=== PATIENT | female | born 1960 | race Caucasian/White ===

== ENCOUNTER → 2019-05-19 | Outpatient (CLI) | payer OTHER ==
[~2019-05-19] VITALS: Ht 154.9 cm; Wt 83.8 kg
[~2019-05-19] MED LIST: BENADRYL25 MG PO; DEXAMETHASONE 22 M1 PO; FLEXERIL PO; IBUPROFEN 400400 M1 PO; NAPROSYN500 MG PO; NORCO 5-325 TA1 EACH PO; NORTRIPTYLINE H25 M3 PO
[2019-05-19 08:35] VITALS: BP 127/71
--- NOTE | 2019-06-03 14:23 | HPC ---
[facility] [address] [place] [address] PAIN MANAGEMENT CONSULTATION Name: JABARI YAN Room #: REG ONEAL Bello.#: [id number] Admission: 05/19/19 Attend Phys: Nirmal Valerio MD Discharge: Date of : 64 Report #: [id number] THIS REPORT FOR: //name// CC: Mitul Benoit DO FAM physician/PCP FAM unknown ANABELL Valerio DATE OF SERVICE: 05/19/2019 CHIEF COMPLAINT: Chronic pain in the right anterior lateral thigh. Possible meralgia paresthetica. 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 Anabell Johnson. She has been reporting severe pain in her right anterolateral thigh that does not radiate or extend beyond the distribution of the lateral femoral cutaneous nerve area. She describes it as very sharp, stabbing and burning like someone hit her with a bat. She also is descriptive and says that it feels like someone is twisting her leg and never lets go. It is tender. Stabbing sensation is associated with allodynia. She scores it as a 10. She also has chronic back pain. She reports that Dr. Johnson placed a spinal cord stimulator in December of 2016 for back pain. To her recollection, although she was experiencing the right leg pain, the stimulator was placed only to help the back, not the leg. Nonetheless, they have used the stimulator on multiple occasions, changing stimulation patterns, attempting to cover this area without success. She has not tried many medications. She has had [id number] Tylenol and ibuprofen with limited benefit and still does not take it. She has had no trials with gabapentin or Lyrica for this neuropathic-like pain syndrome. Her only opioid medication is tramadol and she found it to be very nauseating and took only 1 or 2 tablets before discontinuing it. She has had no salves, creams or patches. She has had physical therapy without relief and water therapy, but does not like the water due to the allodynia. CURRENT MEDICATIONS: None. ALLERGIES: AMOXICILLIN. PAST MEDICAL HISTORY: She has a history of endometriosis. [facility] [address] [place] [address] PAIN MANAGEMENT CONSULTATION Name: JABARI YAN Room #: REG ONEAL Eugenia.#: [id number] Admission: 05/19/19 Attend Phys: Nirmal Valerio MD Discharge: Date of : 64 Report #: [id number] PAST SURGICAL HISTORY: Hysterectomy, D and C, spinal cord stimulator placement and recent bile duct surgery performed at [facility]. She denies pulmonary or cardiac issues. Denies hypertension. No history of stroke or cancer. SOCIAL HISTORY: She is single, but is here today with her significant other with whom she lives. She smokes a pack of cigarettes a day and has done so for most of her adult life. She denies use of alcohol and other illegal drugs. The patient was a garden machinery mechanic at school, but took a social security disability in 2015. REVIEW OF SYSTEMS: Positive for fatigue, weakness, weight gain, frequent coughing, sexual difficulties. PHYSICAL EXAMINATION: GENERAL: She is a pleasant female. She smells of tobacco. She moves independently from sitting to standing position and she walks with antalgic features. Her stamina is not good. She walks up the rodriguez and back, she is showing signs of fatigue, and her gait becomes more antalgic as she ambulates. VITAL SIGNS: Blood pressure is 127/71, heart rate 86, respirations 16, O2 sat 95. She is 5 feet 1 inch, 154 pounds with a BMI of 34.9. HEENT: Normal. Pupils are equal, round, react to light. EOMs are intact. She has tobacco stains on her teeth. NECK: Supple. CHEST: Clear to auscultation except there are decreased breath sounds in the bases. CARDIAC: Rhythm is regular. I could not appreciate a murmur. ABDOMEN: Obese. No appreciable organomegaly. No tenderness. Bowel sounds are present. MUSCULOSKELETAL: Examination of the spine reveals normal alignment. She has good range of motion. She has a spinal cord stimulator placed with the battery on the right and paddle leads tip around T9 seen later on x-ray. No tenderness across the lumbar spine. She has some decreased range of motion. Straight leg raising is negative. She has quite significant pain with internal and external rotation of the hip as well as pain with hip flexion. There is no pain in the groin. She is very hypersensitive and has allodynia and a very circumscribed area that would be consistent with distribution of the lateral femoral cutaneous nerve. No focal weakness is present, but generalized weakness of the lower extremities due to deconditioning is present. IMPRESSION: Right meralgia paresthetica. RECOMMENDATION: I do think that an injection of the lateral femoral cutaneous nerve may be helpful for both diagnostic and therapeutic purposes. Potential benefits and risks of the shot were explained to the patient. She would like to proceed. [facility] [address] [place] [address] PAIN MANAGEMENT CONSULTATION Name: JABARI YAN Room #: MARY Wray#: [id number] Admission: 05/19/19 Attend Phys: Nirmal Valerio MD Discharge: Date of : 64 Report #: [id number] PROCEDURE: She was taken to the fluoroscopic suite in order to facilitate the injection since landmarks were a bit obscure. With fluoroscopic guidance, I was easily able to identify the anterior superior iliac spine. Skin was anesthetized and a 4-inch 22-gauge Tuohy epidural needle was advanced into position using AP and lateral views just to the medial edge of the anterior superior iliac spine. After negative aspiration, I injected 0.25 mL of Omnipaque, demonstrated spread. This looked fine and in a good location for the distribution of the nerve from the AP and lateral views. I then followed with 5 mL of 0.5% bupivacaine mixed with 40 mg of triamcinolone. She tolerated the procedure well and was observed in recovery room for about 30 minutes and discharged with 30% pain relief. Follow up as needed. Further injections will depend upon response. <ELECTRONICALLY SIGNED> By: Nirmal Valerio MD 06/03/19 1423 [id number] [id number] Nirmal Valerio MD /nt
== END | disposition home or self-care (01) ==
LOC: PAIN 06:47
DX: G57.11 Meralgia paresthetica, right lower limb (principal); M79.18 Myalgia, other site; F17.210 Nicotine dependence, cigarettes, uncomplicated; Z90.710 Acquired absence of both cervix and uterus; Z98.890 Other specified postprocedural states; Z88.8 Allergy status to other drugs, medicaments and biological substances

== ENCOUNTER → 2019-06-20 | Outpatient (CLI) | payer OTHER ==
[~2019-06-20] VITALS: Ht 154.9 cm; Wt 83.1 kg
[2019-06-20 09:51] VITALS: BP 141/83
--- NOTE | 2019-06-20 10:07 | NUR ---
Pain Clinic Assessment: 1. History of Osteoarthritis: RT KNEE RT HIP History of Rheumatoid Arthritis: DENIES 2. Height: 5 ft. 1 in. 154.9 cm. Weight: 183.2 lb. oz. 83.099 kg. Patient's BMI: 34.6 3. Vital Signs: BP: 141/83 Pulse: 104 Resp: 16 Temp: 02 Sat: 98 ECG Mon: 4. Pain Intensity: 7-8-TODAY 5. Fall Risk: Dizziness: N Needs help standing or walking: N Fallen in the last 3 months: N Fall risk comments: 6. Patient on Blood Thinner: None 7. History of Hypertension: N 8. Opioid Therapy greater than 6 weeks: N Opiate Contract Signed: 9. Risk Assessment Tool Provided: LOW 10. Functional Assessment Tool: 70/70 11. Recreational Drug Use: Never Drug Type: Tobacco Use: Current Every Day Smoker Tobacco Type: Amount or Packs/day: How Many Years: Alcohol Use: No Frequency: Quant:
--- NOTE | 2019-07-11 12:20 | HPC ---
[facility] [address] [place] [address] PAIN MANAGEMENT CONSULTATION Name: JABARI YAN Room #: REG ONEAL GildardoAvis.#: [id number] Admission: 06/20/19 Attend Phys: Nirmal Valerio MD Discharge: Date of : 64 Report #: [id number] THIS REPORT FOR: //name// CC: Mitul Valerio DATE OF SERVICE: 06/20/2019 Followup visit for meralgia paresthetica pain into the right anterior lateral thigh. The patient received relief from an injection performed about 1 month ago. The duration of response was about 2 weeks long beyond the effects of the local anesthetic. During that time, she slept better according to her and her pain was dramatically improved. He says that she wakes up at night and cries and paces the floor because the pain is so severe. We discussed medication options and I have suggested that we try a tricyclic antidepressant at bedtime for its multiple benefits. It may help with sleep as it has a sedating effect, it may be helpful for neuropathic pain and also has antidepressant effects as well. Side effects were reviewed in some detail, particularly dry mouth, sedation, daytime drowsiness as drug was initiated and I discussed the importance of remaining on the drug if she is able for about a month to determine its pain relieving benefits, which may take some time. PQRS REVIEW: 1. Diffuse osteoarthritis, most prominently in her right knee and right hip. 2. Morbidly obese. BMI of 34.6. 3. Vital signs: Blood pressure 141/83, heart rate 104. 4. Pain intensity 7-8/10. 5. She has not fallen, nor does she appear to be a fall risk. 6. No blood thinner medications. 7. No history of hypertension. 8. She is on no opioids. 9. She is a current tobacco smoker and we discussed the role of tobacco and chronic pain. I provided information regarding stop smoking programs. She denies use of alcohol and denies use of any sort of recreational drugs, marijuana or otherwise. PHYSICAL EXAMINATION: VITAL SIGNS: As noted. MUSCULOSKELETAL: Examination of the spine is normal. She moves easily from [address] [address] PAIN MANAGEMENT CONSULTATION Name: JABARI YAN Room #: REG [facility].#: [id number] Admission: 06/20/19 Attend Phys: Nirmal Valerio MD Discharge: Date of : 64 Report #: [id number] sitting to standing position. Her gait is normal. Examination of the right anterior thigh reveals a dysesthesia and allodynia in the lateral femoral cutaneous nerve distribution. IMPRESSION: Meralgia paresthetica, right side. PROCEDURE: After informed consent, she was taken to fluoroscopic suite. She was placed supine. Skin was prepped with ChloraPrep. I used fluoroscopic guidance because she is morbidly obese and I was able to easily identify the anterior superior iliac spine landmark. Skin was anesthetized and I used a 4-inch 22-gauge Tuohy epidural needle, which was advanced into position into the area just below and medial to the anterior superior iliac spine. After negative aspiration, I injected a total of 0.25 mL of Omnipaque to demonstrate good spread. This was confirmed with lateral. I then injected a total of 5 mL of 0.5% bupivacaine mixed with 40 mg of triamcinolone. She tolerated the procedure well. Her pain reduction at discharge was greater than 50% and a followup visit planned in 1 month. <ELECTRONICALLY SIGNED> By: Nirmal Valerio MD 07/11/19 1220 1231 [id number] Nirmal Valerio MD /nt
== END | disposition home or self-care (01) ==
LOC: PAIN 06:46
DX: G57.11 Meralgia paresthetica, right lower limb (principal); F17.210 Nicotine dependence, cigarettes, uncomplicated; M19.90 Unspecified osteoarthritis, unspecified site; E66.01 Morbid (severe) obesity due to excess calories; Z88.0 Allergy status to penicillin; Z88.1 Allergy status to other antibiotic agents; Z79.899 Other long term (current) drug therapy; Z68.34 Body mass index [BMI] 34.0-34.9, adult

== ENCOUNTER → 2019-08-01 | Outpatient (CLI) | payer OTHER ==
[~2019-08-01] VITALS: Ht 154.9 cm; Wt 84.8 kg
[2019-08-01 10:32] VITALS: BP 140/75
--- NOTE | 2019-08-01 11:11 | NUR ---
Pain Clinic Assessment: 1. History of Osteoarthritis: RT KNEE RT HIP History of Rheumatoid Arthritis: DENIES 2. Height: 5 ft. 1 in. 154.9 cm. Weight: 187.0 lb. oz. 84.823 kg. Patient's BMI: 35.4 3. Vital Signs: BP: 140/75 Pulse: 82 Resp: 18 Temp: 02 Sat: 100 ECG Mon: 4. Pain Intensity: 7-8-TODAY 5. Fall Risk: Dizziness: N Needs help standing or walking: N Fallen in the last 3 months: N Fall risk comments: 6. Patient on Blood Thinner: None 7. History of Hypertension: N 8. Opioid Therapy greater than 6 weeks: N Opiate Contract Signed: 9. Risk Assessment Tool Provided: LOW 10. Functional Assessment Tool: 70/70 11. Recreational Drug Use: Never Drug Type: Tobacco Use: Current Every Day Smoker Tobacco Type: Amount or Packs/day: How Many Years: Alcohol Use: No Frequency: Quant:
--- NOTE | 2019-08-04 17:02 | HPC ---
[facility] [place] [address] PAIN MANAGEMENT CONSULTATION Name: JABARI YAN Room #: REG ONEAL Bello.#: [id number] Admission: 08/01/19 Attend Phys: Nirmal Valerio MD Discharge: Date of : 64 Report #: [id number] THIS REPORT FOR: //name// CC: Mitul Valerio DATE OF SERVICE: 08/01/2019 Followup visit for right anterior thigh pain, L3-L4 distribution. The patient returns to pain clinic today in followup to assess her response to lateral femoral cutaneous nerve block for meralgia paresthetica. This presumptive diagnosis was treated carefully using fluoroscopically guided injections of the lateral femoral cutaneous nerve. Injection was performed at the usual location of the anterior superior iliac spine. Temporary relief was obtained with local anesthetic. Unfortunately, we have not been able to achieve longer term results. This raises the question of whether or not this may be a lumbar radiculopathy. She does have a spinal cord stimulator, which has not been helpful. She has been treating this with neuropathic pain medications. It has been of limited benefit. She was initiated on nortriptyline at bedtime to help with this as well. Benefits of sleep as well as the pain effect were reviewed. PQRS REVIEW: Positive for osteoarthritis involving right hip, right knee. She denies any history of rheumatoid arthritis. She is obese with a BMI of 35.4. We discussed nearest resolutions and weight loss as an important goal. Blood pressure is 140/75, heart rate 84, respirations 18, O2 sat 100%. She scores pain today as 7-8/10. She is not a fall risk and has not fallen in the last 3 months. She denies blood thinners or treatment for hypertension or opioid at this time. She has, however, completed an opioid risk assessment tool and her score is low. She scores her functional assessment at the extremes with a score of 70/70. She denies use of alcohol, but continues to smoke daily and she was counseled. The important component of treatment for chronic pain is smoking cessation. PHYSICAL EXAMINATION: GENERAL: Pleasant female, morbidly obese, moves independently, walks with antalgic gait. VITAL SIGNS: As noted before. EXTREMITIES: She has tenderness through the hip and into the anterior thigh on the right. Straight leg raising is mildly positive. Sensation is intact with some slight hyperesthesia to touch in the anterior thigh. IMPRESSION: Pain in the right anterior thigh, lumbar radicular distribution, [facility] [address] [place] [address] PAIN MANAGEMENT CONSULTATION Name: JABARI YAN Room #: REG CLAster Eugenia.#: [id number] Admission: 08/01/19 Attend Phys: Nirmal Valerio MD Discharge: Date of : 64 Report #: [id number] L3-L4. RECOMMENDATION: Right L4-L5 transforaminal epidural injection under fluoroscopic guidance. I described the procedure to her, risks and benefits, she would like to proceed with an injection. She was taken to fluoroscopic suite for treatment where she was placed prone, skin was prepped with ChloraPrep. Skin anesthetized over the L4-L5 neural foramen. Using triplanar fluoroscopic views, a needle was advanced into the neural foramen without paresthesia. A 1 mL of Omnipaque was injected with excellent spread of dye seen within the epidural space extending cephalad and caudad covering the L3, L4 and L5 nerve roots on the right. This was then followed by 3 mL of 0.5% lidocaine mixed with 60 mg of triamcinolone. She tolerated the procedure well. There were no complications. She was observed in recovery room for a short time and discharged. Followup visit planned on an as needed basis. <ELECTRONICALLY SIGNED> By: Nirmal Valerio MD 08/04/19 1702 1145 1834 Nirmal Valerio MD /nt
== END | disposition home or self-care (01) ==
LOC: PAIN 06:59
DX: M54.16 Radiculopathy, lumbar region (principal); M19.90 Unspecified osteoarthritis, unspecified site; F17.200 Nicotine dependence, unspecified, uncomplicated; Z98.890 Other specified postprocedural states; Z79.899 Other long term (current) drug therapy; Z88.8 Allergy status to other drugs, medicaments and biological substances